=== PATIENT | male | born 2000 | race Hispanic/Latino ===

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

== ENCOUNTER 2024-06-13 05:07 | Emergency (ER) | payer OTHER, SELFPAY ==
--- OUTSIDE RECORDS SUMMARY | 2024-06-13 05:09 | XMS REPORT | Continuity of Care Document ---
Author Name Unknown Address [address] [place] [address] [place] [address] thconnect Address [address] [place] [address] [address] [place] [address] Care Team Providers Care Supervisor [employer] Name Role Phone Unavailable Unavailable Unavailable Encounters Start Date/Time End Date/Time Encounter Type Admission Type Attending Clinicians Care Facility Care Department Encounter ID Source 2023-09-14 08:18:13 2023-09-14 08:18:13 Outpatient [facility] [id number] Niraj Mota
[2024-06-13] MEDS ORDERED: NA CHLORIDE 0.9% 1,000 ML ONE (05:33)
[2024-06-13] MEDS ORDERED: ACETAMINOPHEN 500 MG TAB ONE (05:33)
[2024-06-13] MEDS ORDERED: ONDANSETRON 4 MG/2 ML VIAL ONE (05:33)
[2024-06-13] MEDS ORDERED: KETOROLAC 30 MG/ML INJ ONE (05:33)
[2024-06-13 06:04] LABS: Anion Gap 9.8 mEq/L (5.0-15.0); Potassium 3.8 mEq/L (3.5-5.1); SARS-CoV-2 Antigen CONTROL BLUE LINE VIS/BG OK
[2024-06-13 06:06] LABS: SARS-CoV-2 Antigen Rapid Res Positive (Negative)
--- NOTE | 2024-06-13 06:39 | EDPHYS ---
Physician Documentation [facility] Name: Syed Paz Age: 24 yrs Sex: Male : 2000 Arrival Date: 06/13/2024 Time: 05:07 Bed 14 Private MD: ED Physician Quincy Laughlin HPI: 06/13 05:17 This 24 yrs old Male presents to ER via Unassigned with complaints of Cough, sp4 Congestion, Sore Throat, Headache. 05:30 24-year-old male presents with acute onset high fever starting yesterday evening. sp4 Associated with body aches chills sore throat headache.. Historical: - Allergies: 05:24 No Known Allergies; tm6 - Home Meds: 05:24 None [Active]; tm6 - PMHx: 05:24 None; tm6 - PSHx: 05:24 None; tm6 - Immunization history:: Client reports receiving the 2nd dose of the Covid vaccine. - Infectious Disease History:: Denies. - Social history:: Smoking status: Patient denies any tobacco usage or history of. Patient uses alcohol, but reports only rare drinking. Patient/guardian denies using street drugs. - Family history:: not pertinent. ROS: 05:30 Constitutional: Positive fever, positive chills, positive headache, positive body sp4 aches, positive fatigue, positive sore throat , positive cough, positive congestion 05:30 All other systems are negative, Exam: 05:30 Constitutional: This is a well developed, well nourished patient who is awake, alert, sp4 and in no acute distress. Head/Face: Normocephalic, atraumatic. Eyes: Pupils equal round and reactive to light, extra-ocular motions intact. Lids and lashes normal. Conjunctiva and sclera are not injected. Cornea within normal limits. Periorbital areas with no swelling, redness, or edema. ENT: Nares patent. No nasal discharge, no septal abnormalities noted. Tympanic membranes are normal and external auditory canals are clear. Oropharynx with no redness, swelling, or masses, exudates, or evidence of obstruction, uvula midline. Mucous membranes moist. Neck: Trachea midline, no thyromegaly or masses palpated, and no cervical lymphadenopathy. Supple, full range of motion without nuchal rigidity, or vertebral point tenderness. Chest/axilla: Normal chest wall appearance and motion. Nontender with no deformity. No lesions are appreciated. Cardiovascular: Regular rate and rhythm with a normal S1 and S2. No gallops, murmurs, or rubs. Normal PMI, no JVD. No pulse deficits. Respiratory: Lungs have equal breath sounds bilaterally, clear to auscultation and percussion. No rales, rhonchi or wheezes noted. No increased work of breathing, no retractions or nasal flaring. Abdomen/GI: Soft, with normal bowel sounds. No distension or tympany. No guarding or rebound. No evidence of tenderness throughout. Back: No spinal tenderness. No costovertebral tenderness. Skin: Warm, dry with normal turgor. Normal color with no rashes, no lesions, and no evidence of cellulitis. MS/ Extremity: Pulses equal, no cyanosis. Neurovascular intact. Full, normal range of motion. Neuro: Awake and alert, GCS 15, oriented to person, place, time, and situation. Cranial nerves II-XII grossly intact. Motor strength 5/5 in all extremities. Sensory grossly intact. Psych: Awake, alert, with orientation to person, place and time. Behavior, mood, and affect are within normal limits Vital Signs: 05:22 BP 130 / 102; Pulse 115; Resp 19; Temp 103(O); Pulse Ox 97% on R/A; Pain 4/10; tm6 06:12 BP 108 / 60; Pulse 94; Pulse Ox 96% on R/A; tm6 06:40 BP 108 / 60; Pulse 100; Resp 19; Temp 100.1(O); Pulse Ox 98% on R/A; Pain 0/10; tm6 05:22 Pain Scale: Adult tm6 06:40 Pain Scale: Adult tm6 Norma Coma Score: 05:30 Eye Response: spontaneous(4). Motor Response: obeys commands(6). Verbal Response: sp4 oriented(5). Total: 15. MDM: 05:25 Patient medically screened. sp4 20:16 Differential Diagnosis: Bronchitis Influenza Upper Respiratory Infection Sinusitis sp4 Pharyngitis Otitis Media. Data reviewed: vital signs, nurses notes, lab test result(s). Consideration of Admission/Observation Escalation of care including admission/observation considered. ED course: Patient tested positive for COVID. Patient stable for discharge home with symptomatic medications . 06/13 05:29 Order name: SARS RAPID; Complete Time: 06:31 sp4 06/13 05:30 Order name: BMP; Complete Time: 06:31 sp4 06/13 05:30 Order name: Saline Lock; Complete Time: 05:40 sp4 Administered Medications: 05:40 Drug: NS 0.9% IV 1000 ml IV at 1 bolus Per protocol; 1000 mL bolus Route: IV; Rate: 1 tm6 bolus; Site: right antecubital; 06:45 Follow up: IV Status: Completed infusion; IV Intake: 1000ml tm6 05:40 Drug: Ketorolac IVP 30 mg IVP once Route: IVP; Site: right antecubital; tm6 05:41 Drug: Acetaminophen PO 1000 mg PO once Route: PO; tm6 05:41 Drug: Ondansetron IVP 4 mg IVP once; over 2 minutes Route: IVP; Site: right antecubital;tm6 Disposition Summary: 06/13/24 06:38 Discharge Ordered Notes: Location: Home sp4 Problem: new sp4 Symptoms: have improved sp4 Condition: Stable sp4 Diagnosis - Acute COVID -19 sp4 Followup: sp4 - With: Private Physician - When: As needed - Reason: Discharge Instructions: - Discharge Summary Sheet sp4 - COVID-19 sp4 Forms: - Work release form jb4 - Patient Portal Instructions sp4 Prescriptions: - Ibuprofen 800 mg Oral Tablet - take 1 tablet ORAL route every 8 hours As needed take with food; 30 tablet; sp4 Refills: 0, Product Selection Permitted - ondansetron 8 mg Oral Tablet,disintegrating - take 1 tablet ORAL route every 8 hours PRN nausea; 30 tablet; Refills: 0, sp4 Product Selection Permitted Signatures: Dispatcher [employer] Quincy Morel MD MD sp4 Ten Knutson RN RN tm6 Corrections: (The following items were deleted from the chart) 05:30 05:30 SARS-COV-2 Antigen Rapid+I.LAB.BRZ ordered. EDMS EDMS
--- NOTE | 2024-06-13 06:39 | ER ---
Nurse's Notes [facility] Name: Syed Paz Age: 24 yrs Sex: Male : 2000 Arrival Date: 06/13/2024 Time: 05:07 Bed 14 Private MD: Diagnosis: Acute COVID -19 Presentation: 06/13 05:22 Chief complaint: Patient states: fever, body aches, lightheadedness, sore throat, tm6 nausea, vomiting, since Wednesday. Coronavirus screen: Vaccine status: Patient reports receiving the 2nd dose of the covid vaccine. Ebola Screen: Patient negative for fever greater than or equal to 101.5 degrees Fahrenheit, and additional compatible Ebola Virus Disease symptoms Patient denies exposure to infectious person. Patient denies travel to an Ebola-affected area in the 21 days before illness onset. No symptoms or risks identified at this time. Initial Sepsis Screen: Does the patient meet any 2 criteria? Temp <36.0*C (96.8*F)) or > 38.3*C (100.9*F). HR > 90 bpm. Does the patient have a suspected source of infection? No. Patient's initial sepsis screen is negative. Risk Assessment: Do you want to hurt yourself or someone else? Patient reports no desire to harm self or others. Onset of symptoms was June 11, 2024. 05:22 Method Of Arrival: Ambulatory tm6 05:22 Acuity: TYLER 3 tm6 Triage Assessment: 05:24 General: Appears uncomfortable, Behavior is calm, cooperative. Pain: Complains of pain tm6 in general body aches Pain does not radiate. Pain currently is 4 out of 10 on a pain scale. Quality of pain is described as aching, Pain began 2-3 days ago. EENT: Reports pain sore throat. Neuro: Level of Consciousness is awake, alert, obeys commands, Oriented to person, place, time, situation, Reports lightheadedness. Cardiovascular: Reports lightheadedness, Patient's skin is warm and dry. Respiratory: Airway is patent Respiratory effort is even, unlabored, Respiratory pattern is regular, symmetrical, Breath sounds are clear. GI: Abdomen is flat, non-distended, Reports nausea, vomiting. : No signs and/or symptoms were reported regarding the genitourinary system. Derm: No signs and/or symptoms reported regarding the dermatologic system. Musculoskeletal: Reports body aches. Historical: - Allergies: 05:24 No Known Allergies; tm6 - Home Meds: 05:24 None [Active]; tm6 - PMHx: 05:24 None; tm6 - PSHx: 05:24 None; tm6 - Immunization history:: Client reports receiving the 2nd dose of the Covid vaccine. - Infectious Disease History:: Denies. - Social history:: Smoking status: Patient denies any tobacco usage or history of. Patient uses alcohol, but reports only rare drinking. Patient/guardian denies using street drugs. - Family history:: not pertinent. Screenin:27 [facility] ED Fall Risk Assessment (Adult) History of falling in the last 3 months, tm6 including since admission No falls in past 3 months (0 pts) Confusion or Disorientation No (0 pts) Intoxicated or Sedated No (0 pts) Impaired Gait No (0 pts) Mobility Assist Device Used No (0 pt) Altered Elimination No (0 pt) Score/Fall Risk Level 0 - 2 = Low Risk Oriented to surroundings, Maintained a safe environment, Educated pt \T\ family on fall prevention, incl call for assistance when getting out of bed. Abuse screen: Denies threats or abuse. Denies injuries from another. Nutritional screening: No deficits noted. Tuberculosis screening: No symptoms or risk factors identified. Assessment: 05:27 Reassessment: see triage assessment. Cardiovascular: Patient's skin is warm and dry. tm6 Respiratory: Airway is patent Respiratory effort is even, unlabored, Respiratory pattern is regular, symmetrical. Vital Signs: 05:22 BP 130 / 102; Pulse 115; Resp 19; Temp 103(O); Pulse Ox 97% on R/A; Pain 4/10; tm6 06:12 BP 108 / 60; Pulse 94; Pulse Ox 96% on R/A; tm6 06:40 BP 108 / 60; Pulse 100; Resp 19; Temp 100.1(O); Pulse Ox 98% on R/A; Pain 0/10; tm6 05:22 Pain Scale: Adult tm6 06:40 Pain Scale: Adult tm6 Norma Coma Score: 05:30 Eye Response: spontaneous(4). Motor Response: obeys commands(6). Verbal Response: sp4 oriented(5). Total: 15. ED Course: 05:09 Patient arrived in ED. jj6 05:17 Quincy Laughlin MD is Attending Physician. sp4 05:24 Triage completed. tm6 05:24 Arm band placed on right wrist. tm6 05:27 Patient has correct armband on for positive identification. Bed in low position. Call tm6 light in reach. Side rails up X 1. Provided Education on: use of call carr. Client placed on continuous cardiac and pulse oximetry monitoring. NIBP monitoring applied. Pulse ox on. NIBP on. Door closed. Noise minimized. 05:40 SARS RAPID Sent. tm6 05:40 BMP Sent. tm6 05:41 Inserted saline lock: 20 gauge in right antecubital area, using aseptic technique. oe Blood collected. Flushed with 10 mL NS. 06:11 Ten Knutson, RN is Primary Nurse. tm6 06:40 No provider procedures requiring assistance completed. IV discontinued, intact, tm6 bleeding controlled, No redness/swelling at site. Pressure dressing applied. Administered Medications: 05:40 Drug: NS 0.9% IV 1000 ml IV at 1 bolus Per protocol; 1000 mL bolus Route: IV; Rate: 1 tm6 bolus; Site: right antecubital; 06:45 Follow up: IV Status: Completed infusion; IV Intake: 1000ml tm6 05:40 Drug: Ketorolac IVP 30 mg IVP once Route: IVP; Site: right antecubital; tm6 05:41 Drug: Acetaminophen PO 1000 mg PO once Route: PO; tm6 05:41 Drug: Ondansetron IVP 4 mg IVP once; over 2 minutes Route: IVP; Site: right antecubital;tm6 Medication: 05:27 VIS not applicable for this client. tm6 Intake: 06:45 IV: 1000ml; Total: 1000ml. tm6 Outcome: 06:38 Discharge ordered by . sp4 06:40 Discharged to home ambulatory, with family, tm6 06:40 Condition: stable 06:40 Discharge instructions given to patient, family, Instructed on discharge instructions, follow up and referral plans. medication usage, Demonstrated understanding of instructions, follow-up care, medications, Prescriptions given X 2, 06:45 Patient left the ED. tm6 Signatures: Rakan Cagle Jennifer jj6 Quincy Laughlin MD MD sp4 Ten Knutson, HILLARY RN tm6
[2024-06-15 16:32] VITALS: BP 108/60; TEMP 100.1; O2SAT 98
== END 2024-06-13 06:45 | disposition home or self-care (01) ==
LOC: ER 05:07
DX: U07.1 COVID-19 (principal)
CPT/HCPCS: 96361; 80048; 36415; 96375; 96374; 99284; 87811; J2405; J7030